=== PATIENT | male | born 1940 | race African-American/Black ===

== ENCOUNTER 2018-11-15 12:11 | Inpatient (IN) | payer MEDICARE, OTHER ==
--- NOTE | 2018-11-15 12:43 | RAD ---
Exam: Chest one view HISTORY:Fever Comparison: 02/04/2009 FINDINGS: Cardiac silhouette: Normal Aorta: Atherosclerosis and elongation Pulmonary vessels: Normal Costophrenic angles: Right costophrenic angle is clear. Minimal blunting of the left costophrenic ang le. LUNGS: Focal infiltrate in the left upper lobe. Pneumothorax: None Osseous abnormalities: None IMPRESSION: 1. Minimal blunting of the left costophrenic angle likely due to small effusion. 2. Left upper lobe infiltrate. Continued surveillance is recommended.
[2018-11-15 12:48] LABS: Mean Corpuscular HGB CONC 32.7 g/dL (32.0-36.0); Mean Corpuscular Hemoglobin 36.1 pg (27.0-31.0); Mean Platelet Volume 7.8 fL (7.4-10.4); Platelet Count 169 thou/uL (130-400); RBC Distribution Width 13.5 % (11.5-14.5); Red Blood Cell (RBC) Count 3.04 mill/uL (4.70-6.10); White Blood Cell (WBC) Count 13.7 thou/uL (4.8-10.8)
[2018-11-15 13:04] LABS: Band 15 % (5-11); Lymphocytes 1 % (21-51); MDiff Complete? YES; Macrocytosis SLIGHT = 6-15 cells (100X) (0-5/hpf); Monocytes 7 % (0-10); Neutrophil 77 % (42-75); Platelet Morphology Comment Appears Adequate; Polychromasia SLIGHT = 2-3 cells (100X) (0-2/hpf)
[2018-11-15 13:14] LABS: ALT (SGPT) 8 U/L (8-55); AST (SGOT) 12 U/L (5-34); Albumin 3.6 g/dL (3.4-4.8); Alkaline Phosphatase 59 U/L (40-150); Anion Gap 12 mmol/L (10-20); BUN (Urea Nitrogen) 15 mg/dL (8.4-25.7); Bilirubin, Total 0.9 mg/dL (0.2-1.2); CK (CPK) 25 U/L (30-200); Calc. Creatinine Clearance 0 mL/min (70-130); Calcium 8.6 mg/dL (7.8-10.44); Carbon Dioxide 24 mmol/L (23-31); Chloride 101 mmol/L (98-107); Estimated GFR-MDRD 69; Globulin 1.7 g/dL (2.4-3.5); Glucose 113 mg/dL (83-110); Lipase Less than 4 U/L (8-78); Potassium 4.5 mmol/L (3.5-5.1); Protein, Total 5.3 g/dL (5.8-8.1); Sodium 132 mmol/L (136-145)
[2018-11-15] MEDS ORDERED: cefTRIAXone\\ROCEPHIN 1 GM VIAL ONE (13:30)
--- NOTE | 2018-11-15 14:53 | HP ---
PRIMARY CARE PHYSICIAN: Dr. Esa Corado. REASON FOR ADMISSION: Sepsis, encephalopathy, and pneumonia. HISTORY OF PRESENT ILLNESS: This is a 78-year-old male, who has multiple medical problems including hypertension, dyslipidemia, smoking, gout, who presented to emergency room with a complaint of altered mental status. The patient's family member reports that about one and half week ago, he was admitted at [facility] for colon infection. At that time, the patient's family member was told that he did not have any pneumonia. He stayed in the hospital for about 1 week. He was given different antibiotic therapy, and by the time of discharge, he was pretty much up to his baseline. He was at home for about 1-1/2 weeks, and for last couple of days, the patient's family member noticed that he is again declining, and he was having lethargy and generalized weakness. He was also having diarrhea for 1 or 2 days. He does not have any hematochezia or blood in stool. He did not have any vomiting or abdominal pain, but he was having cough, but family member reports that he always coughed because of smoking-related issue. He has continued to smoke about half pack per day. He denies any recent travel or sick exposure. He does not have any flu-like illness. Today morning, the patient family member noticed that he was not acting as he supposed to act normally. He was more lethargic, more somnolent, and that is why family member concerned about and decided to bring to the hospital. In the emergency room, today his routine blood test showed leukocytosis with bandemia, and he had a chest x-ray, which showed left upper lobe infiltration. The patient has received Rocephin and Levaquin in the emergency room. The patient had also received IV fluid. He was febrile in the emergency room and he was relatively hypotensive, but his blood pressure has improved. Family member, the patient's ex- as well as the patient's son, and the patient expressed their wish to continue as a DNR status while in hospital. At this point, the patient's condition has been improved in the emergency room and we are admitting this patient for further evaluation and treatment. REVIEW OF SYSTEMS: CONSTITUTIONAL: Negative for weight loss or gain, ability to conduct usual activities. SKIN: Negative for rash, itching. EYES: Negative for double vision, pain. ENT/MOUTH: Negative for nose bleeding, neck stiffness, pain, tenderness. CARDIOVASCULAR: Negative for palpitations, dyspnea on exertion, orthopnea. RESPIRATORY: Negative for shortness of breath, wheezing, cough, hemoptysis, fever or night sweats. GASTROINTESTINAL: Negative for poor appetite, abdominal pain, heartburn, nausea , vomiting, constipation, or diarrhea. GENITOURINARY: Negative for urgency, frequency, dysuria, nocturia. MUSCULOSKELETAL: Negative for pain, swelling. NEUROLOGIC/PSYCHIATRIC: Negative for anxiety, depression. ALLERGY/IMMUNOLOGIC: Negative for skin rash, bleeding tendency. Please see my HPI for pertinent positives and negatives. All other review of systems reviewed and negative except as mentioned in HPI. Above-mentioned review of systems is also not reliable because the patient is lethargic and somnolent. PAST MEDICAL HISTORY: Peripheral vascular disease, sciatica, hypertension, dyslipidemia, chronic pain disorder, chronic constipation, and macrocytic anemia. PAST SURGICAL HISTORY: Left inguinal hernia repair, rib removal, left hand surgery, and Dupuytren contracture repair. PAST PSYCHIATRIC HISTORY: Reviewed and negative. SOCIAL HISTORY: The patient has history of alcohol use in the past, but currently he does not have any alcohol abuse. He dips tobacco as well as smokes about half pack per day. He is retired, lives at home with family. FAMILY HISTORY: No strong family history of CAD, CVA or cancer. ALLERGIES: AUGMENTIN CAUSES DIARRHEA. CURRENT HOME MEDICATION: 1. Chlorthalidone 25 mg half tablet daily. 2. Lipitor 20 mg p.o. at bedtime. 3. Aspirin 81 mg daily. 4. Losartan 50 mg daily. 5. Etodolac 500 mg daily. 6. Gabapentin 600 mg three times daily. 7. Colchicine 0.6 mg twice daily. 8. Folic acid 1 mg daily. 9. MS Contin 30 mg three times daily. EMERGENCY ROOM COURSE: The patient has received IV fluid 2 L, Rocephin 1 g, and Levaquin 750 mg. PHYSICAL EXAMINATION: VITAL SIGNS: Currently, blood pressure 104/59, pulse 74, respiratory rate 18, temperature 99.8, saturation 98% on room air, and weight 67 kg. GENERAL: The patient is currently somnolent, lethargic, arousable, follows simple commands. HEENT: Head; normocephalic and atraumatic. Eyes; pupils round and reactive to light, extraocular muscle intact. ENT; oropharynx within normal limits, moist mucous membranes, no oral lesion, no pharyngeal erythema, no exudate. NECK: Supple. No JVD. No thyromegaly. No carotid bruit. No jugular venous distention. LUNGS: Left-sided upper lobe rales heard. No wheeze. No rhonchi. No accessory muscles of respiration in use. CARDIAC: S1 and S2 regular. Slight tachycardia. No murmur. No gallop. No rub. ABDOMEN: Soft. Bowel sounds present. Nontender. Nondistended. No organomegaly. No mass. No suprapubic tenderness. BACK: Unremarkable. No CVA tenderness. EXTREMITIES: Upper extremities; passive movement of all joints are normal. Lower extremities; bilateral lower extremity edema noted, good distal pulsation. SKIN: No skin rash. HEMATOLOGICAL: No lymphadenopathy. NEUROLOGIC: Nonfocal examination. SIGNIFICANT LABORATORY DATA: WBC 13.7, hemoglobin 11.0, MCV 101, platelet 169 with bandemia. BMP; sodium 132, potassium 4.5, chloride 101, carbon dioxide 24, BUN 15, creatinine 1.24, glucose 113, and calcium 8.6. Lactic acid 1.8. LFT; AST 12, ALT 8, alkaline phosphatase 59, and albumin 3.6. CK 25. Troponin I is less than 0.010. BNP 188.7. Albumin 3.6. Lipase less than 4. Chest x-ray based on my review, left upper lobe infiltration. EKG showing normal sinus rhythm without any acute ischemic changes. ASSESSMENT/PLAN: 1. Severe sepsis. The patient has sepsis criteria with fever, tachycardia, leukocytosis with bandemia. Source of infection is likely pneumonia. We will exclude C diff colitis. Blood culture and urine culture obtained. The patient also has associated encephalopathy, which is likely from sepsis. 2. Left upper lobe pneumonia, likely healthcare-associated. The patient had recent hospitalization one and half week ago at [facility]. Currently has severe sepsis. We will give him Rocephin, Levaquin, pharmacy-adjusted vancomycin, Florastor 250 mg p.o. daily, DuoNeb therapy on p.r.n. basis, Mucinex 600 mg twice daily. We will give him gentle IV fluid at 70 mL/h. 3. Macrocytic anemia. We will continue with folic acid and vitamin B12 therapy while in hospital. 4. Hypotension. We will hold on antihypertensive medication today. Once blood pressure improves, then we will resume blood pressure medication. 5. Dyslipidemia. We will continue Lipitor 20 mg p.o. at bedtime. 6. Chronic pain disorder. We will use morphine 2 mg q.2 hours hourly p.r.n. basis for pain control. We will hold on the long-acting medication because of encephalopathy. 7. Chronic low back pain. We will continue with gabapentin 600 mg three times daily. We will hold gabapentin if the patient's mental status is still lethargic and somnolent. 8. Hyponatremia, likely related with volume depletion and chlorthalidone use. 9. Deep venous thrombosis prophylaxis, Lovenox 40 mg subcu daily. Gastrointestinal prophylaxis, Pepcid 20 mg p.o. b.i.d. 10. Code status, the patient is DNR. This was confirmed with the patient's son and the patient's ex- and with the patient. 11. Elevated BNP. This patient has bilateral lower extremity edema. We will obtain echocardiography to assess EF and other structural abnormality. DISPOSITION PLAN: The patient will need PT, OT, and possible placement to senior living home versus rehab based on clinical course. Plan of care discussed with the patient and family member. We will also check urinalysis and send urine culture. Job ID: [id number] [facility]
[2018-11-15] MEDS ORDERED: Ondansetron PF 4 MG/2 ML Vial IVP PRN (15:33)
[2018-11-15] MEDS ORDERED: Ondansetron ODT 4 MG TAB SL PRN (15:33)
[2018-11-15] MEDS ORDERED: Zolpidem Tartrate 5 MG TAB PO PRN (15:39)
[2018-11-15] MEDS ORDERED: Bisacodyl 10 MG SUPP PR PRN (15:39)
[2018-11-15] MEDS ORDERED: cefTRIAXone\\ROCEPHIN 1 GM in Sodium Chloride 0.9% 100 ML IVPB SCH (16:00)
[2018-11-15] MEDS: Acetaminophen 325 MG TAB PO PRN ×2 (16:09→19:41)
[2018-11-15] MEDS: Sodium Chloride 0.9% 1,000 ML IV SCH ×3 (16:09→23:10)
[2018-11-15] MEDS: Gabapentin 300 MG CAP PO SCH ×2 (16:09→21:46)
[2018-11-15 16:21] VITALS: BMI 19.6
[2018-11-15] MEDS ORDERED: Vancomycin HCl 1.5 GM in Sodium Chloride 0.9% 250 ML 300 ML IVPB SCH (17:00)
[2018-11-15 20:09] LABS: Bilirubin Moderate (Negative); Blood, Urine Negative (Negative); Clarity CLEAR (Clear); Glucose, Urine (Dipstick) Negative (Negative); Leukocyte Negative (Negative); Nitrite Negative (Negative); Protein, Urine (Dipstick) Negative (Neg-Trace); Specific Gravity, Urine 1.011 (1.002-1.036); Urobilinogen 0.2 mg/dL (0.2-1.0); pH, Urine 5.5 (5.0-9.0)
[2018-11-15 20:12] LABS: Bacteria/HPF None Seen HPF (None Seen); Hyaline Casts/LPF 0-3 HYALINE CAST LPF (0-3 Hyaline); RBC/HPF 0-3 HPF (0-3); Squamous Epithelial None Seen HPF (0-3); WBC/HPF 0-3 HPF (0-3)
[2018-11-15] MEDS ORDERED: Ibuprofen 100 MG/5 ML UDCUP PO PRN (20:45)
[2018-11-15] MEDS ORDERED: Senokot S 8.6-50 MG TAB PO PRN (21:00)
[2018-11-15] MEDS: HYDROcodone/Acetaminophen 5/325 mg Tablet PO PRN (21:43)
[2018-11-15] MEDS: Famotidine 20 MG TAB PO SCH (21:43)
[2018-11-15] MEDS: Atorvastatin Calcium 20 MG TAB PO SCH (21:43)
[2018-11-15] MEDS: guaiFENesin ER 600 MG TAB PO SCH (21:43)
[2018-11-16] MEDS ORDERED: Ibuprofen 200 MG TAB PO PRN (00:30)
[2018-11-16 03:59] LABS: #Basophils 0.1 thou/uL (0.0-0.2); #Eosinphils 0.1 thou/uL (0.0-0.7); #Lymphocytes 0.3 thou/uL (1.20-3.40); #Monocytes 0.5 thou/uL (0.11-0.59); #Neutrophils 6.5 thou/uL (1.40-6.50); %Basophils 0.7 % (0.0-1.0); %Lymphocytes 4.2 % (21.0-51.0); %Neutrophils 87.1 % (42.0-75.0); Hemoglobin 10.4 g/dL (14.0-18.0); Mean Corpuscular HGB CONC 34.6 g/dL (32.0-36.0); Mean Corpuscular Hemoglobin 37.6 pg (27.0-31.0); Platelet Count 132 thou/uL (130-400); RBC Distribution Width 13.3 % (11.5-14.5); Red Blood Cell (RBC) Count 2.77 mill/uL (4.70-6.10); White Blood Cell (WBC) Count 7.5 thou/uL (4.8-10.8)
[2018-11-16 04:13] LABS: Anion Gap 11 mmol/L (10-20); BUN (Urea Nitrogen) 16 mg/dL (8.4-25.7); Calc. Creatinine Clearance 48 mL/min (70-130); Carbon Dioxide 20 mmol/L (23-31); Chloride 107 mmol/L (98-107); Estimated GFR-MDRD 72; Glucose 93 mg/dL (83-110); Potassium 3.3 mmol/L (3.5-5.1); Sodium 135 mmol/L (136-145)
[2018-11-16] MEDS: Acetaminophen 325 MG TAB PO PRN ×2 (05:10→21:15)
[2018-11-16] MEDS: Sodium Chloride 0.9% 1,000 ML IV SCH ×3 (05:17→21:11)
[2018-11-16] MEDS: Folic Acid 1 MG TAB PO SCH (08:48)
[2018-11-16] MEDS: Gabapentin 300 MG CAP PO SCH ×3 (08:48→21:15)
[2018-11-16] MEDS: guaiFENesin ER 600 MG TAB PO SCH ×2 (08:48→21:15)
[2018-11-16] MEDS: Multivitamin W/ Minerals 1 TAB PO SCH (08:48)
[2018-11-16] MEDS: Famotidine 20 MG TAB PO SCH ×2 (08:48→21:15)
[2018-11-16] MEDS: Saccharomyces boulardii 250 MG CAP PO SCH (08:48)
[2018-11-16] MEDS: Aspirin Chewable 81 MG TAB PO SCH (08:48)
[2018-11-16] MEDS: Enoxaparin Sodium 40 MG/0.4 ML SYRINGE SC SCH (08:52)
[2018-11-16] MEDS: Cyanocobalamin (Vitamin B-12) 1,000 MCG TAB PO SCH (08:52)
[2018-11-16] MEDS: metroNIDAZOLE 500 MG in Premix Bag 1 BAG IVPB SCH ×2 (10:19→17:50)
[2018-11-16] MEDS ORDERED: cefTRIAXone\\ROCEPHIN 1 GM in Sodium Chloride 0.9% 100 ML IVPB SCH (14:00)
--- NOTE | 2018-11-16 14:26 | PDOC.PN ---
- Subjective Encounter Start Date: 11/16/18 Encounter Start Time: 14:24 Patient seen and examined, no new issues. All questions answered. - Objective Vital Signs & Weight: Vital Signs (12 hours) Temp Pulse Resp BP BP Pulse Ox 11/16/18 08:00 98.8 F 75 18 122/50 L 93 L 11/16/18 07:10 99.5 F 11/16/18 04:57 102.0 F H 100 18 116/70 95 Weight Weight 145 lb I&O: 11/15/18 11/16/18 11/17/18 06:59 06:59 06:59 Intake Total 1290 Balance 1290 Result Diagrams: 11/16/18 03:52 11/16/18 03:52 Phys Exam - Physical Examination Constitutional: NAD HEENT: PERRLA, moist MMs Neck: no nodes, no JVD Respiratory: no wheezing, no rales, no rhonchi Cardiovascular: RRR, no significant murmur, no rub Gastrointestinal: soft, non-tender, no distention Musculoskeletal: pulses present, edema present (trace) Dx/Plan (1) Sepsis Code(s): A41.9 - SEPSIS, UNSPECIFIED ORGANISM Status: Acute (2) Anemia Code(s): D64.9 - ANEMIA, UNSPECIFIED Status: Acute (3) C. difficile colitis Status: Acute - Plan * patient is AAO x 3 and is not sure he wants to be a DNR, advised to discuss with his son and family before deciding, will revisit code status in AM * DC rocephin + vanc for now, patient is C-diff positive, will cont with levaquin, add flagyl * labs in AM * likely will need IV abx for a couple more days * no other changes for now * case and plan d/w patient and family at length, they understood and agreed with this plan.
[2018-11-16] MEDS ORDERED: Vancomycin HCl 1 GM in Premix Bag 1 BAG IVPB SCH (17:00)
[2018-11-16] MEDS: Atorvastatin Calcium 20 MG TAB PO SCH (21:15)
[2018-11-17] MEDS: metroNIDAZOLE 500 MG in Premix Bag 1 BAG IVPB SCH ×3 (02:30→19:17)
[2018-11-17] MEDS: Acetaminophen 325 MG TAB PO PRN (05:09)
[2018-11-17] MEDS: HYDROcodone/Acetaminophen 5/325 mg Tablet PO PRN ×4 (06:12→19:18)
[2018-11-17] MEDS: Sodium Chloride 0.9% 1,000 ML IV SCH ×2 (06:29→21:15)
[2018-11-17 07:46] LABS: #Lymphocytes 0.6 thou/uL (1.20-3.40); #Monocytes 0.6 thou/uL (0.11-0.59); #Neutrophils 9.2 thou/uL (1.40-6.50); %Eosinophils 0.1 % (0.0-10.0); %Lymphocytes 6.1 % (21.0-51.0); %Monocytes 6.1 % (0.0-10.0); %Neutrophils 87.7 % (42.0-75.0); Hemoglobin 9.7 g/dL (14.0-18.0); Mean Corpuscular HGB CONC 34.5 g/dL (32.0-36.0); Mean Corpuscular Hemoglobin 37.3 pg (27.0-31.0); Mean Platelet Volume 8.5 fL (7.4-10.4); Platelet Count 130 thou/uL (130-400); RBC Distribution Width 13.2 % (11.5-14.5); Red Blood Cell (RBC) Count 2.59 mill/uL (4.70-6.10); White Blood Cell (WBC) Count 10.5 thou/uL (4.8-10.8)
[2018-11-17 08:27] LABS: Anion Gap 12 mmol/L (10-20); BUN (Urea Nitrogen) 16 mg/dL (8.4-25.7); Calc. Creatinine Clearance 56 mL/min (70-130); Calcium 8.1 mg/dL (7.8-10.44); Carbon Dioxide 20 mmol/L (23-31); Chloride 108 mmol/L (98-107); Estimated GFR-MDRD 85; Glucose 87 mg/dL (83-110); Potassium 3.2 mmol/L (3.5-5.1); Sodium 137 mmol/L (136-145)
[2018-11-17] MEDS: Saccharomyces boulardii 250 MG CAP PO SCH (09:26)
[2018-11-17] MEDS: Multivitamin W/ Minerals 1 TAB PO SCH (09:26)
[2018-11-17] MEDS: Gabapentin 300 MG CAP PO SCH ×4 (09:26→20:39)
[2018-11-17] MEDS: Cyanocobalamin (Vitamin B-12) 1,000 MCG TAB PO SCH (09:26)
[2018-11-17] MEDS: Aspirin Chewable 81 MG TAB PO SCH (09:26)
[2018-11-17] MEDS: Folic Acid 1 MG TAB PO SCH (09:26)
[2018-11-17] MEDS: Famotidine 20 MG TAB PO SCH ×2 (09:26→20:39)
[2018-11-17] MEDS: guaiFENesin ER 600 MG TAB PO SCH ×2 (09:27→20:39)
[2018-11-17] MEDS: Enoxaparin Sodium 40 MG/0.4 ML SYRINGE SC SCH (09:27)
[2018-11-17] MEDS ORDERED: Potassium Chloride 20 MEQ TAB PO SCH (10:00)
--- NOTE | 2018-11-17 13:34 | PDOC.PN ---
- Subjective Encounter Start Date: 11/17/18 Encounter Start Time: 13:32 Patient seen and examined, no new issues or complaints. States he feels better. - Objective Vital Signs & Weight: Vital Signs (12 hours) Temp Pulse Resp BP BP Pulse Ox 11/17/18 08:00 98.9 F 65 18 123/53 L 94 L 11/17/18 04:00 99.2 F 66 18 137/69 95 Weight Weight 145 lb I&O: 11/16/18 11/17/18 11/18/18 06:59 06:59 06:59 Intake Total 3875 Balance 3875 Result Diagrams: 11/17/18 07:15 11/17/18 07:15 Phys Exam - Physical Examination Constitutional: NAD HEENT: PERRLA, moist MMs, sclera anicteric Neck: no nodes, no JVD, supple Respiratory: no wheezing, no rales, no rhonchi Cardiovascular: RRR, no significant murmur, no rub Gastrointestinal: soft, non-tender, no distention, positive bowel sounds Dx/Plan (1) Sepsis Code(s): A41.9 - SEPSIS, UNSPECIFIED ORGANISM Status: Acute (2) Anemia Code(s): D64.9 - ANEMIA, UNSPECIFIED Status: Acute (3) C. difficile colitis Status: Acute - Plan * still having diarrhea, stool not well formed * cont IVFs * able to tolerate liquids today, slowly advance diet * cont flagyl/levaquin * no changes in plan of care * case and plan d/w patient and son at length, they understood and agreed with this plan.
[2018-11-17] MEDS: Atorvastatin Calcium 20 MG TAB PO SCH (20:39)
[2018-11-17] MEDS: Ondansetron ODT 4 MG TAB PO PRN (21:14)
[2018-11-18] MEDS: HYDROcodone/Acetaminophen 5/325 mg Tablet PO PRN ×5 (00:35→23:46)
[2018-11-18] MEDS: Calcium Carbonate 500 MG ChewTAB PO PRN ×2 (00:36→22:49)
[2018-11-18] MEDS: metroNIDAZOLE 500 MG in Premix Bag 1 BAG IVPB SCH ×3 (01:40→19:18)
[2018-11-18] MEDS: Ondansetron ODT 4 MG TAB PO PRN ×2 (05:48→20:10)
[2018-11-18] MEDS: Multivitamin W/ Minerals 1 TAB PO SCH (08:47)
[2018-11-18] MEDS: Gabapentin 300 MG CAP PO SCH ×2 (08:47→20:17)
[2018-11-18] MEDS: Saccharomyces boulardii 250 MG CAP PO SCH (08:47)
[2018-11-18] MEDS: Folic Acid 1 MG TAB PO SCH (08:47)
[2018-11-18] MEDS: Cyanocobalamin (Vitamin B-12) 1,000 MCG TAB PO SCH (08:47)
[2018-11-18] MEDS: Aspirin Chewable 81 MG TAB PO SCH (08:47)
[2018-11-18] MEDS: guaiFENesin ER 600 MG TAB PO SCH ×2 (08:47→20:16)
[2018-11-18] MEDS: Famotidine 20 MG TAB PO SCH ×2 (08:47→20:16)
[2018-11-18] MEDS: Enoxaparin Sodium 40 MG/0.4 ML SYRINGE SC SCH (08:48)
[2018-11-18] MEDS: Ondansetron PF 4 MG/2 ML Vial IVP PRN ×2 (09:40→15:21)
--- NOTE | 2018-11-18 10:12 | PDOC.PN ---
- Subjective Encounter Start Date: 11/18/18 Encounter Start Time: 12:20 Subjective: Patient with decreased diarrhea today, more formed. No cough. No SOB. - Objective MAR Reviewed: Yes Vital Signs & Weight: Vital Signs (12 hours) Temp Pulse Resp BP BP Pulse Ox 11/18/18 07:46 98.5 F 69 16 143/75 H 95 11/18/18 04:00 98.7 F 67 18 156/62 H 97 11/18/18 00:00 97.9 F 68 18 149/78 H 95 Weight Weight 145 lb I&O: 11/17/18 11/18/18 11/19/18 06:59 06:59 06:59 Intake Total 3875 Balance 3875 Result Diagrams: 11/17/18 07:15 11/17/18 07:15 Phys Exam - Physical Examination Constitutional: NAD HEENT: moist MMs Respiratory: no wheezing, no rales, no rhonchi, clear to auscultation bilateral Cardiovascular: RRR, no significant murmur Gastrointestinal: soft, non-tender, positive bowel sounds Neurological: non-focal Psychiatric: normal affect, A&O x 3 Dx/Plan (1) Pneumonia Code(s): J18.9 - PNEUMONIA, UNSPECIFIED ORGANISM Status: Acute Qualifiers: Laterality: left Lung location: upper lobe of lung Comment: on Levaquin (2) Sepsis Code(s): A41.9 - SEPSIS, UNSPECIFIED ORGANISM Status: Acute Comment: leukocytosis and relative hypotension resolved, on Levaquin, Metronidazole since 11/16/18, oral Vanc. since 11/18/18 (3) C. difficile colitis Status: Acute Comment: oral vanc (4) Chronic pain disorder Code(s): G89.4 - CHRONIC PAIN SYNDROME Status: Chronic Comment: resume home Morphine (5) HTN (hypertension) Code(s): I10 - ESSENTIAL (PRIMARY) HYPERTENSION Status: Chronic (6) PVD (peripheral vascular disease) Code(s): I73.9 - PERIPHERAL VASCULAR DISEASE, UNSPECIFIED Status: Chronic (7) Hyperlipidemia Code(s): E78.5 - HYPERLIPIDEMIA, UNSPECIFIED Status: Chronic - Plan cont current plan of care, continue antibiotics, PT/OT, DVT proph w/lovenox, DVT proph w/SCDs * . - Discharge Day Encounter end time: 12:30
[2018-11-18] MEDS: Vancomycin HCl 25 MG/ML Oral PO SCH ×3 (13:45→23:45)
[2018-11-18] MEDS: Sodium Chloride 0.9% 1,000 ML IV SCH (13:56)
[2018-11-18] MEDS ORDERED: Morphine ER 30 MG TAB PO SCH ×2 (14:00→15:00)
[2018-11-18] MEDS ORDERED: Gabapentin 300 MG CAP PO SCH ×2 (14:00→15:00)
[2018-11-18] MEDS ORDERED: GABAPENTIN 600 MG PO SCH (15:00)
[2018-11-18] MEDS: Colchicine 0.6 MG TAB PO SCH (20:16)
[2018-11-18] MEDS: Atorvastatin Calcium 20 MG TAB PO SCH (20:17)
[2018-11-18] MEDS: Morphine ER 30 MG TAB PO SCH (20:18)
[2018-11-18] MEDS ORDERED: Non-Formulary Item 1 EACH (Losartan Potassium [Cozaar] 50 MG) PO SCH (21:00)
[2018-11-18] MEDS ORDERED: ECONAZOLE NITRATE TOP SCH (21:00)
[2018-11-18] MEDS ORDERED: Losartan 25 MG TAB PO SCH (21:00)
[2018-11-18] MEDS ORDERED: ECONAZOLE NITRATE 1% TOP SCH (21:00)
[2018-11-18] MEDS ORDERED: [UNRECOGNIZED DRUG - OTHER] TOP SCH (21:00)
[2018-11-18] MEDS ORDERED: HYDROCORTISONE TOP SCH (21:00)
[2018-11-18] MEDS ORDERED: PRAMOXINE TOP SCH (21:00)
[2018-11-18] MEDS: Hydrocortisone 2.5%/Pramoxine 1% CRM 30 GM TUBE TOP SCH (21:47)
[2018-11-19] MEDS: metroNIDAZOLE 500 MG in Premix Bag 1 BAG IVPB SCH (01:12)
[2018-11-19] MEDS: Sodium Chloride 0.9% 1,000 ML IV SCH (01:13)
[2018-11-19] MEDS: HYDROcodone/Acetaminophen 5/325 mg Tablet PO PRN (05:02)
[2018-11-19] MEDS: Vancomycin HCl 25 MG/ML Oral PO SCH ×2 (05:02→11:55)
[2018-11-19] MEDS: Ondansetron ODT 4 MG TAB PO PRN (05:02)
[2018-11-19 07:04] LABS: #Eosinphils 0.1 thou/uL (0.0-0.7); #Lymphocytes 1.2 thou/uL (1.20-3.40); #Monocytes 0.6 thou/uL (0.11-0.59); #Neutrophils 2.7 thou/uL (1.40-6.50); %Basophils 0.2 % (0.0-1.0); %Eosinophils 1.8 % (0.0-10.0); %Lymphocytes 27.2 % (21.0-51.0); %Monocytes 12.1 % (0.0-10.0); %Neutrophils 58.7 % (42.0-75.0); Hemoglobin 9.2 g/dL (14.0-18.0); Mean Corpuscular HGB CONC 32.2 g/dL (32.0-36.0); Mean Corpuscular Hemoglobin 35.3 pg (27.0-31.0); Mean Platelet Volume 8.2 fL (7.4-10.4); Platelet Count 140 thou/uL (130-400); RBC Distribution Width 13.5 % (11.5-14.5); Red Blood Cell (RBC) Count 2.59 mill/uL (4.70-6.10); White Blood Cell (WBC) Count 4.6 thou/uL (4.8-10.8)
[2018-11-19 07:22] LABS: Anion Gap 9 mmol/L (10-20); BUN (Urea Nitrogen) 12 mg/dL (8.4-25.7); Calc. Creatinine Clearance 64 mL/min (70-130); Calcium 8.2 mg/dL (7.8-10.44); Carbon Dioxide 21 mmol/L (23-31); Chloride 111 mmol/L (98-107); Estimated GFR-MDRD Greater than 90; Glucose 89 mg/dL (83-110); Potassium 3.2 mmol/L (3.5-5.1); Sodium 138 mmol/L (136-145)
[2018-11-19] MEDS: Multivitamin W/ Minerals 1 TAB PO SCH (08:16)
[2018-11-19] MEDS: Saccharomyces boulardii 250 MG CAP PO SCH (08:16)
[2018-11-19] MEDS: Famotidine 20 MG TAB PO SCH (08:16)
[2018-11-19] MEDS: Cyanocobalamin (Vitamin B-12) 1,000 MCG TAB PO SCH (08:16)
[2018-11-19] MEDS: Folic Acid 1 MG TAB PO SCH (08:16)
[2018-11-19] MEDS: Morphine ER 30 MG TAB PO SCH (08:16)
[2018-11-19] MEDS: Gabapentin 300 MG CAP PO SCH (08:17)
[2018-11-19] MEDS: guaiFENesin ER 600 MG TAB PO SCH (08:18)
[2018-11-19] MEDS: Enoxaparin Sodium 40 MG/0.4 ML SYRINGE SC SCH (08:18)
[2018-11-19] MEDS: Colchicine 0.6 MG TAB PO SCH (08:18)
[2018-11-19] MEDS: Aspirin Chewable 81 MG TAB PO SCH (08:18)
[2018-11-19] MEDS: Hydrocortisone 2.5%/Pramoxine 1% CRM 30 GM TUBE TOP SCH (08:19)
[2018-11-19] MEDS ORDERED: Ketoconazole 2% Cream 15 gm Tube TOP SCH (09:00)
--- NOTE | 2018-11-19 09:09 | PDOC.PN ---
- Subjective Encounter Start Date: 11/19/18 Encounter Start Time: 11:10 Subjective: Patient reports normal bowel movement this AM. Feeling much better. -: Ambulating ok. Ready to go home. - Objective MAR Reviewed: Yes Vital Signs & Weight: Vital Signs (12 hours) Temp Pulse Resp BP BP Pulse Ox 11/19/18 07:18 98.3 F 52 L 18 148/62 H 100 11/19/18 05:04 98.7 F 56 L 16 158/74 H 97 11/19/18 00:00 98.2 F 54 L 16 130/66 95 Weight Weight 145 lb I&O: 11/18/18 11/19/18 11/20/18 06:59 06:59 06:59 Intake Total 1440 Balance 1440 Result Diagrams: 11/19/18 06:49 11/19/18 06:49 Phys Exam - Physical Examination Constitutional: NAD HEENT: moist MMs Respiratory: no wheezing, no rales, no rhonchi, clear to auscultation bilateral Cardiovascular: RRR, no significant murmur Gastrointestinal: soft, non-tender, positive bowel sounds Neurological: non-focal Psychiatric: normal affect, A&O x 3 Dx/Plan (1) Pneumonia Code(s): J18.9 - PNEUMONIA, UNSPECIFIED ORGANISM Status: Acute Qualifiers: Laterality: left Lung location: upper lobe of lung Comment: on Levaquin, change to oral today, last day 11/21/18 (2) Sepsis Code(s): A41.9 - SEPSIS, UNSPECIFIED ORGANISM Status: Acute Comment: leukocytosis and relative hypotension resolved, on Levaquin, Metronidazole since 11/16/18, oral Vanc. since 11/18/18, will give course of Vanc until 10 days after last dose of Levaquin. (3) C. difficile colitis Status: Acute Comment: oral vanc (4) Chronic pain disorder Code(s): G89.4 - CHRONIC PAIN SYNDROME Status: Chronic Comment: resume home Morphine (5) HTN (hypertension) Code(s): I10 - ESSENTIAL (PRIMARY) HYPERTENSION Status: Chronic (6) PVD (peripheral vascular disease) Code(s): I73.9 - PERIPHERAL VASCULAR DISEASE, UNSPECIFIED Status: Chronic (7) Hyperlipidemia Code(s): E78.5 - HYPERLIPIDEMIA, UNSPECIFIED Status: Chronic - Plan cont current plan of care, continue antibiotics, PT/OT can d/c home today * . - Discharge Day Encounter end time: 11:20
[2018-11-19] MEDS ORDERED: Potassium Chloride 20 MEQ TAB PO SCH (09:15)
[2018-11-19] MEDS ORDERED: Prevnar 13-Val Conj/PF 0.5 ML SYRINGE IM ONE (09:30)
[2018-11-19 11:36] VITALS: BP 149/65; TEMP 98
--- NOTE | 2018-11-19 17:20 | DIS ---
DATE OF ADMISSION: 11/15/2018 DATE OF DISCHARGE: 11/19/2018 PRIMARY CARE PHYSICIAN: Esa Corado MD REASON FOR ADMISSION: Sepsis, encephalopathy, and pneumonia. DIAGNOSES AT DISCHARGE: 1. Acute bacterial pneumonia, left upper lobe. 2. Sepsis, resolved. 3. Clostridium difficile colitis. 4. Chronic pain disorder. 5. Hypertension. 6. Peripheral vascular disease. 7. Hyperlipidemia. 8. Diastolic dysfunction of the heart. PROCEDURES: 1. Chest x-ray showing left upper lobe infiltrate. 2. Echocardiogram showing a normal ejection fraction of 50% to 55%, with impaired relaxation compatible with diastolic dysfunction. CONSULTATIONS: None. SUMMARY OF HOSPITAL COURSE: This is a 78-year-old male with a history of a recent admission to [facility] for undetermined colon infection. He was there for about a week, was given antibiotics and was back up to his baseline at discharge. He was home for about 1-1/2 weeks and then the family noted he was starting to decline over the past couple of days, lethargy, generalized weakness, also having some diarrhea for 1 to 2 days. The patient presented to the emergency room, was noted to be in severe sepsis, was given fluids. He had a chest x-ray down with pneumonia visible. He also had diarrhea tested, it was positive for C difficile. The patient was given Rocephin, Levaquin, and vancomycin while he is in the hospital. Metronidazole was added as well. Once the C difficile came back positive, he was transitioned over to oral vancomycin. His sepsis resolved. He was feeling much better after fluid resuscitation. He was noted to have an elevated brain natriuretic peptide, so an echocardiogram was done that showed a possible diastolic dysfunction, but no systolic congestive heart failure and he was not in any clinical congestive failure at that time. The patient had resolution of his diarrhea after being on oral vancomycin for a couple of days, was feeling much better, ambulating with physical therapy and ready to go home. He was transitioned over to oral Levaquin. DISCHARGE MANAGEMENT: Discharged home. FOLLOWUP: Follow up with Dr. Corado in 2 to 3 weeks. ACTIVITY: As tolerated. DIET: Healthy heart, low-sodium diet. DISCHARGE MEDICATIONS: 1. Levaquin 750 mg daily for another 2 days. 2. Vancomycin 125 mg 4 times a day for another 12 days. 3. Continue aspirin 81 mg daily. 4. Atorvastatin 20 mg at night. 5. Chlorthalidone 12.5 mg daily. 6. Colchicine 0.6 mg twice a day. 7. Econazole nitrate 1% cream one application topically twice a day. 8. Etodolac extended release 500 mg daily. 9. Folic acid 1 mg daily. 10. Gabapentin 600 mg 3 times a day. 11. Pramosone 2.5/1% ointment applied topically twice a day. 12. Ketoconazole cream 2% applied topically daily. 13. Losartan 50 mg at night. 14. Morphine extended release. 15. MS Contin 30 mg 3 times a day. 16. Triamcinolone acetonide 0.1% ointment applied topically twice a day. Arranging the details of this discharge took 32 minutes. Job ID: [id number]
== END 2018-11-19 13:49 | disposition home or self-care (01) | DRG 871 ==
LOC: ERS 12:11 → T4-B 13:23
PROVIDERS: ADMIT Internal Medicine; ATTEND Internal Medicine
DX: A41.9 Sepsis, unspecified organism (principal); J15.9 Unspecified bacterial pneumonia; A04.72 Enterocolitis due to Clostridium difficile, not specified as recurrent; G93.40 Encephalopathy, unspecified; I10 Essential (primary) hypertension; Z66 Do not resuscitate; E78.5 Hyperlipidemia, unspecified; I73.9 Peripheral vascular disease, unspecified; R65.20 Severe sepsis without septic shock; D53.9 Nutritional anemia, unspecified; M54.5 Low back pain; G89.29 Other chronic pain; Z98.890 Other specified postprocedural states; Z88.0 Allergy status to penicillin; Z79.82 Long term (current) use of aspirin; Z79.899 Other long term (current) drug therapy
CPT/HCPCS: 36415; 71045; 80048; 80053; 81001; 82550; 83605; 83690; 83880; 84484; 85025; 87040; 87086; 87324; 87449; 87804; 90471; 90670; 93005; 93306; 96361; 96365; 96375; G0009; J0696; J1650; J1956; J2405; J3370; J7050; Q0162

== ENCOUNTER 2019-11-30 12:00 | Observation (INO) | payer MEDICARE, OTHER ==
[2019-11-30 13:03] LABS: Hemoglobin 12.9 g/dL (14.0-18.0); Mean Corpuscular HGB CONC 31.8 g/dL (32.0-36.0); Mean Corpuscular Hemoglobin 34.8 pg (27.0-31.0); Mean Platelet Volume 8.9 fL (7.4-10.4); Platelet Count 149 thou/uL (130-400); RBC Distribution Width 13.4 % (11.5-14.5); Red Blood Cell (RBC) Count 3.72 mill/uL (4.70-6.10); White Blood Cell (WBC) Count 5.3 thou/uL (4.8-10.8)
[2019-11-30 13:15] LABS: ALT (SGPT) 8 U/L (8-55); AST (SGOT) 12 U/L (5-34); Alkaline Phosphatase 93 U/L (40-110); Anion Gap 11 mmol/L (10-20); BUN (Urea Nitrogen) 12 mg/dL (8.4-25.7); Bilirubin, Total 0.8 mg/dL (0.2-1.2); Calc. Creatinine Clearance 0 mL/min (70-130); Calcium 9.1 mg/dL (7.8-10.44); Carbon Dioxide 27 mmol/L (23-31); Chloride 108 mmol/L (98-107); Estimated GFR-MDRD 81; Globulin 2.3 g/dL (2.4-3.5); Glucose 109 mg/dL (83-110); Lipase 14 U/L (8-78); Potassium 3.8 mmol/L (3.5-5.1); Protein, Total 6.3 g/dL (5.8-8.1); Sodium 142 mmol/L (136-145)
[2019-11-30 13:27] LABS: #Lymphocytes 0.7 thou/uL (1.20-3.40); #Monocytes 0.2 thou/uL (0.11-0.59); #Neutrophils 4.4 thou/uL (1.40-6.50); %Basophils 0.4 % (0.0-1.0); %Eosinophils 0.3 % (0.0-10.0); %Lymphocytes 12.7 % (21.0-51.0); %Neutrophils 82.6 % (42.0-75.0); MDiff Complete? YES; Macrocytosis SLIGHT = 6-15 cells (100X) (0-5/hpf); Platelet Morphology Comment Appears Adequate; Polychromasia SLIGHT = 2-3 cells (100X) (0-2/hpf)
[2019-11-30] MEDS ORDERED: Iopamidol-370 76% 500 ML 1 ML ONE (13:31)
--- NOTE | 2019-11-30 13:48 | CT ---
EXAM: CT ABDOMEN AND PELVIS HISTORY: Periumbilical pain. Nausea and vomiting this morning. COMPARISON: 10/29/2018 Procedure: Multiple contiguous axial images were obtained and a CT of the abdomen and pelvis with IV contrast. C oronal reformats were performed. FINDINGS: Lower Chest: within normal limits. Vessels: Atherosclerosis in a nonaneurysmal aorta. Normal luminal diameter. Heart: Normal heart size. No significant pericardial fluid Abdomen: Portal vein:Patent Gallbladder: No calcified gallstones. Normal caliber wall. Liver: Stable hypodensities in the hepatic dome. No enhancing masses. Pancreas: within normal limits. Spleen: within normal limits. Adrenals: within normal limits. Kidneys: Stable hypodensities in the right renal cortex. Bilaterally no obstructive uropathy. Peritoneum: No ascites or free air, no fluid collection. Bowel: Limited evaluation due to the lack of oral contrast administration. No evidence of bowel obstr uction. Mild mucosal thickening involving the proximal jejunal loops. Ileocecal junction is unremarkable. Normal caliber appendix. Scattered fecal material in a nondistended, nondilated colon. Scattered diverticula in the sigmoid colon. No diverticulitis. Mesentery and Retroperitoneum: No enlarged mesenteric or retroperitoneal lymph nodes. Abdominal Wall: Small umbilical hernia containing mesenteric fat. Pelvis: Reproductive Organs: Reproductive organs are unremarkable. Pelvis: No mass, lymphadenopathy, free air or free fluid. Bladder: Mucosal prominence likely due to inadequate distention. Bones: within normal limits. IMPRESSION: 1. Mild mucosal thickening involving proximal jejunal loops. Correlate for enteritis.
[2019-11-30] MEDS ORDERED: Ondansetron PF 4 MG/2 ML Vial ONE ×2 (13:58→15:02)
--- NOTE | 2019-11-30 14:53 | RAD ---
Exam: Chest one view HISTORY:Nausea vomiting diarrhea. Comparison: 11/15/2018 FINDINGS: Cardiac silhouette: Normal Aorta: Atherosclerosis Pulmonary vessels: Normal Costophrenic angles: Clear LUNGS: Chronic lung parenchymal changes. Pneumothorax: None Osseous abnormalities: None IMPRESSION: No acute cardiopulmonary process. Atherosclerosis.
[2019-11-30 15:34] LABS: Bilirubin Negative (Negative); Blood, Urine Negative (Negative); Clarity Clear (Clear); Glucose, Urine (Dipstick) Normal (Negative); Leukocyte Negative Leu/uL (Negative); Nitrite Negative (Negative); Protein, Urine (Dipstick) 30 mg/dL (Neg-Trace); Squamous Epithelial 0-3 HPF (0-3); Urobilinogen Normal mg/dL (Less than 2); WBC/HPF 0-3 HPF (0-3)
[2019-11-30 15:42] LABS: Bacteria/HPF None Seen HPF (None Seen); Sperm/HPF Rare HPF (None Seen)
[2019-11-30] MEDS ORDERED: hydrALAZINE 20 MG/ML VIAL ONE (16:08)
[2019-11-30] MEDS ORDERED: Ondansetron PF 4 MG/2 ML Vial IVP PRN (16:45)
[2019-11-30] MEDS ORDERED: Guaifenesin DM 100-10/5 ML UDCUP PO PRN (16:45)
[2019-11-30] MEDS ORDERED: Ondansetron ODT 4 MG TAB PO PRN (16:45)
[2019-11-30] MEDS ORDERED: hydrALAZINE 20 MG/ML VIAL SLOW IVP PRN (16:54)
--- NOTE | 2019-11-30 17:41 | HP ---
PCP: Esa Corado MD. CHIEF COMPLAINT: Intractable nausea, vomiting, and diarrhea. HISTORY OF PRESENT ILLNESS: The patient is a 79-year-old male with a past medical history significant for hypertension, hyperlipidemia, PVD, who presents to the ER for the above complaint. The patient reports developing nausea, vomiting, and diarrhea on Sunday. He reports that he has several stools a day. He denies any blood or mucus in the stools. He denies any fever. He denies any recent travel and he has not taken any antibiotics recently. He also reports some generalized abdominal pain, described as cramping, aching and intermittent, exacerbated and relieved by nothing. He also has some general weakness. He denies any headaches, vision changes, or focal deficits. He reports that he is able to tolerate liquids and solids intermittently. He also reports that he has not taken any of his blood pressure medicines for the last 3 days. For these reasons, he called EMS and was taken to the ER. In the ER, the patient was found to be hypertensive 202/83, with a pulse of 52. He was afebrile. Respirations were stable. EKG was sinus donny with rate of 54. CT of the abdomen showed mild mucosal thickening involving the proximal jejunal loops. Correlate for enteritis. His CMP was unremarkable and his LFTs were within normal limits. He had a white count of 5.3, lactic acid 1.7, and urine was unremarkable. He was given 1 L of normal saline, Zofran 8 mg, and hydralazine 10 mg. PAST MEDICAL HISTORY: 1. Hypertension. 2. Hyperlipidemia. 3. PVD. 4. Anemia. 5. Osteoarthritis. 6. Sciatica. SURGICAL HISTORY: 1. Hernia repair. 2. Left hand surgery. SOCIAL HISTORY: The patient lives by himself in [place] and is retired. He admits to smoking one pack per day for greater than 40 years. He denies any EtOH or illicit drug use. FAMILY HISTORY: Contributory for hypertension and cardiac disease. ALLERGIES: AMOXICILLIN AND AUGMENTIN. HOME MEDICATIONS: 1. Losartan 50 mg p.o. daily. 2. Gabapentin 600 mg p.o. t.i.d. 3. Morphine 30 mg p.o. p.r.n. pain. REVIEW OF SYSTEMS: All review of systems are negative unless otherwise noted in the HPI. PHYSICAL EXAMINATION: VITAL SIGNS: Temperature 98.9, blood pressure 202/83, heart rate 52, respirations 17, 98% on room air. CONSTITUTIONAL: The patient is hypertensive with bradycardia, normal respirations and afebrile. He is alert and oriented to person, place, and time. He is uncomfortable. He is nontoxic in appearance. HEAD: Atraumatic, normocephalic. EYES: PERRLA. Extraocular muscles intact. Sclerae nonicteric. ENT: Nares patent bilaterally. Oropharynx is clear. Uvula midline. Dry mucous membranes. Tonsils appear normal. NECK: Supple. Trachea midline. No cervical lymphadenopathy. Full range of motion. RESPIRATORY: Respirations are even and nonlabored. Diminished in the bilateral lower bases, rhonchi. No wheezes or rales. CARDIOVASCULAR: Sinus donny. S1, S2 appreciated. No murmurs, rubs, or gallops. ABDOMEN: Mild diffuse tenderness to palpation. Active bowel sounds. Nondistended and soft. No guarding. No rigidity. Negative Rodriguez sign. Negative Rovsing sign. No rebound tenderness. BACK: Full range of motion. No central spinous tenderness. No CVA tenderness. EXTREMITIES: Upper extremities: Bilateral upper extremities, full range of motion. Normal strength. Palpable radial pulses. Lower extremities: Full range of motion, normal strength, palpable pedal pulses. No swelling. No erythema. NEUROLOGIC: Patient is alert and oriented to person, place, and time. Cranial nerves 2 through 12 intact. SKIN: Warm, dry, and intact. PSYCHIATRIC: Normal affect. Alert and oriented to person, place, and time. LABORATORY DATA: EKG sinus donny at 54, no ST elevations. Initial troponin 0.013. BNP of 192.8. Chest x-ray was negative for any acute process. CT of the abdomen was positive for mild mucosal thickening involving the proximal jejunal loops. Correlate for enteritis. Lactic acid 1.7. UA was unremarkable. Sodium 142, potassium 3.8, chloride 108, CO2 of 27, BUN 12, creatinine 1.07, glucose of 109 , GFR of 81, T bilirubin 0.8, alkaline phosphatase 93, AST 12, ALT 8. WBC 5.3, hemoglobin 12.9, hematocrit 40.6, platelets were 149. IMPRESSION AND PLAN: 1. Intractable nausea and vomiting. We will admit the patient to the medical floor, observation status. Expected length of stay less than two midnights. On exam, the patient appears uncomfortable but nontoxic in appearance. CT of the abdomen showed mild mucosal thickening involving the proximal jejunal loops. Correlate for gastroenteritis. Lactic acid was 1.7. His WBCs were 5.3. The patient was given 1 L of normal saline and Zofran 8 mg in the ER with symptom improvement. His potassium was 3.8, and his LFTs were unremarkable. We will continue IV fluid resuscitation and antiemetics as needed and place the patient on a clear liquid diet. We will check stool studies, magnesium level and a TSH. We will place the patient on contact precautions until stool studies return. 2. Gastroenteritis. Again, CT of abdomen was positive for mild mucosal thickening involving the proximal jejunal loops. We will place the patient on clear liquid diet, give supportive care and advance diet as tolerated. 3. Suspected COVID. The patient denies any recent travel or known contacts with COVID. COVID test is pending. We will place on droplet precautions. 4. Hypertension. The patient has a history of hypertension and has not been able to take his oral medications for the last 3 days. He presented with a blood pressure of 202/83, currently on exam is 181/81. He denies any headaches, focal deficits. He does have some generalized weakness, most likely related to the nausea and vomiting and diarrhea. We will restart the patient's home medication of losartan 50 mg daily and we will add hydralazine p.r.n. for SBP over 180. We will continue to monitor blood pressure. 5. Tobacco abuse. The patient has extensive smoking history of one pack per day since he was a teenager. He is unwilling to quit. We will start NRT therapy, will alcohol and drug counselor on tobacco cessation. 6. Consult walking program. SCDs for deep venous thrombosis prophylaxis. Pepcid for gastrointestinal prophylaxis. The patient is a full code. 7. Discussed the case with Dr. Wasserman. Job ID: [id number] [facility]
[2019-11-30] MEDS: Famotidine/PF 20 mg/2ml Vial SLOW IVP SCH (20:13)
[2019-11-30] MEDS: Nicotine 14 MG PATCH TD SCH (20:13)
[2019-11-30] MEDS: Gabapentin 300 MG CAP PO SCH (20:13)
[2019-11-30] MEDS: Morphine ER 30 MG TAB PO SCH (20:14)
[2019-11-30] MEDS: Sodium Chloride 0.9% 1,000 ML IV SCH (20:15)
[2019-11-30] MEDS ORDERED: Losartan 25 MG TAB PO SCH (21:00)
[2019-11-30] MEDS: Acetaminophen 325 MG TAB PO PRN (21:23)
[2019-12-01] MEDS ORDERED: HYDROcodone/Acetaminophen 5/325 mg Tablet PO SCH (00:30)
[2019-12-01] MEDS ORDERED: HYDROcodone/Acetaminophen 5/325 mg Tablet ONE (00:36)
[2019-12-01] MEDS: Sodium Chloride 0.9% 1,000 ML IV SCH ×3 (01:32→11:29)
[2019-12-01] MEDS: Acetaminophen 325 MG TAB PO PRN (04:40)
[2019-12-01 05:01] LABS: #Lymphocytes 1.8 thou/uL (1.20-3.40); #Neutrophils 4.8 thou/uL (1.40-6.50); %Basophils 0.5 % (0.0-1.0); %Eosinophils 0.4 % (0.0-10.0); %Lymphocytes 23.5 % (21.0-51.0); %Monocytes 13.1 % (0.0-10.0); %Neutrophils 62.5 % (42.0-75.0); Hemoglobin 11.3 g/dL (14.0-18.0); Mean Corpuscular HGB CONC 32.2 g/dL (32.0-36.0); Mean Corpuscular Hemoglobin 35.1 pg (27.0-31.0); Mean Platelet Volume 9.1 fL (7.4-10.4); Platelet Count 132 thou/uL (130-400); RBC Distribution Width 13.4 % (11.5-14.5); Red Blood Cell (RBC) Count 3.22 mill/uL (4.70-6.10); White Blood Cell (WBC) Count 7.7 thou/uL (4.8-10.8)
[2019-12-01 05:20] LABS: Anion Gap 9 mmol/L (10-20); BUN (Urea Nitrogen) 12 mg/dL (8.4-25.7); Calc. Creatinine Clearance 65 mL/min (70-130); Calcium 8.2 mg/dL (7.8-10.44); Carbon Dioxide 23 mmol/L (23-31); Chloride 112 mmol/L (98-107); Estimated GFR-MDRD 90; Glucose 88 mg/dL (83-110); Potassium 3.2 mmol/L (3.5-5.1); Sodium 141 mmol/L (136-145)
[2019-12-01] MEDS: Gabapentin 300 MG CAP PO SCH ×2 (07:51→14:06)
[2019-12-01] MEDS: Famotidine/PF 20 mg/2ml Vial SLOW IVP SCH (07:51)
[2019-12-01] MEDS: Morphine ER 30 MG TAB PO SCH ×2 (07:52→14:06)
[2019-12-01] MEDS ORDERED: Saccharomyces boulardii 250 MG CAP PO SCH (09:00)
[2019-12-01] MEDS ORDERED: Potassium Chloride 20 MEQ TAB PO SCH (09:45)
[2019-12-01 11:52] VITALS: BMI 21.9
[2019-12-01 14:55] LABS: SARS-CoV-2 MS2 Positive; SARS-CoV-2 N Gene Negative; SARS-CoV-2 S Gene Negative; SARS-CoV-2 orf1ab Negative
[2019-12-01] MEDS: Nicotine 14 MG PATCH TD SCH (16:13)
[2019-12-01 16:14] VITALS: BP 169/79; TEMP 99.2
--- NOTE | 2019-12-02 02:50 | DIS ---
DATE OF ADMISSION: 11/30/2019 DATE OF DISCHARGE: 12/01/2019 PRIMARY CARE PROVIDER: Esa Corado MD DISCHARGE DIAGNOSES: 1. Gastroenteritis, most likely secondary to viral etiology. 2. Hypokalemia. 3. Low TSH, normal free T4. 4. COVID-19 ruled out. CONDITION OF PATIENT ON THE DAY OF DISCHARGE: Stable. I assessed Mr. Hernandez on the day of discharge. He denies any chest pain or shortness of breath. He denies any nausea, vomiting, or diarrhea. He denies any abdominal pain. Vital signs are stable. S1 and S2 are heard, regular. Lungs are clear to auscultation bilaterally. DISCHARGE MEDICATIONS: No change was made to his pre-admission home medications. POST ACUTE CARE FOLLOWUP: With primary care provider in 3 days. ACTIVITY: As tolerated. DIET: Heart healthy. HOSPITAL COURSE: Mr. Hernandez is a pleasant 79-year-old gentleman, who was admitted to [facility] for nausea, vomiting, and diarrhea, most likely secondary to viral gastroenteritis. He improved with intravenous fluids. COVID-19 was ruled out with a negative PCR test. He is being discharged home in a stable condition. Many thanks for allowing me to participate in your patient's care. Please feel free to contact me with any questions or concerns. DISCHARGE DESTINATION: Home. Job ID: [id number]
== END 2019-12-01 17:37 | disposition home or self-care (01) ==
LOC: ERS 12:00 → 2SW 16:12 → ERHOLD 16:34 → 2SW 17:46
PROVIDERS: ADMIT Internal Medicine; ATTEND Internal Medicine
DX: K52.9 Noninfective gastroenteritis and colitis, unspecified (principal); E87.6 Hypokalemia; I10 Essential (primary) hypertension; E78.5 Hyperlipidemia, unspecified; I73.9 Peripheral vascular disease, unspecified; M19.90 Unspecified osteoarthritis, unspecified site; M54.30 Sciatica, unspecified side; F17.210 Nicotine dependence, cigarettes, uncomplicated; Z20.828 Contact with and (suspected) exposure to other viral communicable diseases; Z79.82 Long term (current) use of aspirin; Z79.899 Other long term (current) drug therapy; Z88.0 Allergy status to penicillin
CPT/HCPCS: 71045; 74177; 80048; 83605; 83630; 83690; 83735; 83880; 84439; 84484; 85025; 87045; 87046; 87324; 87427 ×2; 87449 ×2; 93005; 96361; 96374; 96375 ×3; 96376 ×2; 99285; G0378 ×3; U0003; 36415; 80053; 81003; 81015; 84443; 87635; J0360; J2405; Q9967; S0028

== ENCOUNTER 2019-12-03 14:16 | Emergency (ER) | payer MEDICARE, OTHER ==
[2019-12-03 15:36] LABS: #Lymphocytes 0.8 thou/uL (1.20-3.40); #Monocytes 0.3 thou/uL (0.11-0.59); %Basophils 0.5 % (0.0-1.0); %Eosinophils 0.4 % (0.0-10.0); %Lymphocytes 13.5 % (21.0-51.0); %Monocytes 4.8 % (0.0-10.0); %Neutrophils 80.7 % (42.0-75.0); Mean Corpuscular HGB CONC 33.9 g/dL (32.0-36.0); Mean Corpuscular Hemoglobin 36.7 pg (27.0-31.0); Platelet Count 125 thou/uL (130-400); RBC Distribution Width 13.7 % (11.5-14.5); Red Blood Cell (RBC) Count 3.55 mill/uL (4.70-6.10); White Blood Cell (WBC) Count 6.2 thou/uL (4.8-10.8)
[2019-12-03 15:55] LABS: Bilirubin Negative (Negative); Blood, Urine Negative (Negative); Clarity Clear (Clear); Glucose, Urine (Dipstick) Normal (Negative); Leukocyte Negative Leu/uL (Negative); Nitrite Negative (Negative); Protein, Urine (Dipstick) 20 mg/dL (Neg-Trace)
[2019-12-03 16:20] LABS: AST (SGOT) 16 U/L (5-34); Albumin 4.2 g/dL (3.4-4.8); Anion Gap 18 mmol/L (10-20); BUN (Urea Nitrogen) 10 mg/dL (8.4-25.7); Bilirubin, Total 1.1 mg/dL (0.2-1.2); Calc. Creatinine Clearance 0 mL/min (70-130); Calcium 9.7 mg/dL (7.8-10.44); Carbon Dioxide 18 mmol/L (23-31); Chloride 111 mmol/L (98-107); Estimated GFR-MDRD 87; Globulin 2.4 g/dL (2.4-3.5); Glucose 98 mg/dL (83-110); Potassium 4.5 mmol/L (3.5-5.1); Protein, Total 6.6 g/dL (5.8-8.1); Sodium 142 mmol/L (136-145)
[2019-12-03] MEDS ORDERED: Lidocaine Viscous Sol 2% 15 ml UD Cup ONE (16:44)
[2019-12-03] MEDS ORDERED: hydrALAZINE 20 MG/ML VIAL ONE (16:44)
[2019-12-03] MEDS ORDERED: Pantoprazole 40 MG VIAL ONE (16:46)
[2019-12-03] MEDS ORDERED: Mag-Al 1200 mg/1200 mg/30 ML UDCUP ONE (16:46)
[2019-12-03] MEDS ORDERED: Sucralfate 1 GM/10 ML UDCUP ONE (16:46)
[2019-12-03] MEDS ORDERED: Ondansetron PF 4 MG/2 ML Vial ONE ×2 (16:46→16:52)
[2019-12-03 17:41] LABS: Alkaline Phosphatase 87 U/L (40-110)
[2019-12-03 17:45] LABS: ALT (SGPT) Less than 7 U/L (8-55)
== END 2019-12-03 18:20 | disposition home or self-care (01) ==
LOC: ERS 14:16
DX: R11.2 Nausea with vomiting, unspecified (principal); R10.812 Left upper quadrant abdominal tenderness; I73.9 Peripheral vascular disease, unspecified; E78.5 Hyperlipidemia, unspecified; E78.00 Pure hypercholesterolemia, unspecified; I10 Essential (primary) hypertension; M19.90 Unspecified osteoarthritis, unspecified site; D64.9 Anemia, unspecified; F17.210 Nicotine dependence, cigarettes, uncomplicated; Z79.891 Long term (current) use of opiate analgesic; Z79.899 Other long term (current) drug therapy
CPT/HCPCS: 80053; 81003; 83690; 84484; 85025; 93005; 96374; 96375; 99284; G0463; 36415; 99214; C9113; J0360; J2405

== ENCOUNTER 2021-03-03 11:55 | Emergency (ER) | payer MEDICARE, OTHER ==
[2021-03-03 12:48] LABS: #Basophils 0.1 thou/uL (0.0-0.2); #Eosinphils 0.1 thou/uL (0.0-0.7); #Lymphocytes 1.9 thou/uL (1.20-3.40); #Monocytes 0.6 thou/uL (0.11-0.59); #Neutrophils 2.9 thou/uL (1.40-6.50); %Basophils 1.1 % (0.0-1.0); %Eosinophils 2.5 % (0.0-10.0); %Lymphocytes 33.2 % (21.0-51.0); %Neutrophils 52.3 % (42.0-75.0); Hemoglobin 12.2 g/dL (14.0-18.0); Mean Corpuscular HGB CONC 34.1 g/dL (32.0-36.0); Mean Corpuscular Hemoglobin 36.9 pg (27.0-31.0); Mean Platelet Volume 8.5 fL (7.4-10.4); Platelet Count 178 thou/uL (130-400); RBC Distribution Width 13.7 % (11.5-14.5); Red Blood Cell (RBC) Count 3.31 mill/uL (4.70-6.10); White Blood Cell (WBC) Count 5.6 thou/uL (4.8-10.8)
[2021-03-03 13:04] LABS: MDiff Complete? YES; Macrocytosis SLIGHT = 6-15 cells (100X) (0-5/hpf); Platelet Morphology Comment Appears Adequate; Polychromasia SLIGHT = 2-3 cells (100X) (0-2/hpf)
[2021-03-03 13:09] LABS: ALT (SGPT) Less than 7 U/L (8-55); AST (SGOT) 11 U/L (5-34); Albumin 3.7 g/dL (3.4-4.8); Alkaline Phosphatase 94 U/L (40-110); Anion Gap 8 mmol/L (10-20); BUN (Urea Nitrogen) 16 mg/dL (8.4-25.7); Bilirubin, Total 0.4 mg/dL (0.2-1.2); Calc. Creatinine Clearance 0 mL/min (70-130); Calcium 8.8 mg/dL (7.8-10.44); Carbon Dioxide 29 mmol/L (23-31); Chloride 99 mmol/L (98-107); Globulin 2.3 g/dL (2.4-3.5); Glucose 91 mg/dL (83-110); Lipase 16 U/L (8-78); Potassium 3.3 mmol/L (3.5-5.1); Sodium 133 mmol/L (136-145)
[2021-03-03 14:16] LABS: Magnesium 1.9 mg/dL (1.6-2.6)
[2021-03-03 15:37] LABS: Bilirubin Negative (Negative); Blood, Urine Negative (Negative); Clarity Clear (Clear); Glucose, Urine (Dipstick) Normal (Negative); Ketone, Urine Negative (Negative); Leukocyte Negative Leu/uL (Negative); Nitrite Negative (Negative); Protein, Urine (Dipstick) Negative (Neg-Trace); Specific Gravity, Urine 1.006 (1.002-1.036); Urobilinogen Normal mg/dL (Less than 2)
== END 2021-03-03 15:50 | disposition home or self-care (01) ==
LOC: ERS 11:55
DX: R42 Dizziness and giddiness (principal); R29.6 Repeated falls; D53.1 Other megaloblastic anemias, not elsewhere classified; I10 Essential (primary) hypertension; E78.5 Hyperlipidemia, unspecified; M19.90 Unspecified osteoarthritis, unspecified site; E78.00 Pure hypercholesterolemia, unspecified; D64.9 Anemia, unspecified; F17.210 Nicotine dependence, cigarettes, uncomplicated; Z79.84 Long term (current) use of oral hypoglycemic drugs; Z79.899 Other long term (current) drug therapy; Z79.810 Long term (current) use of selective estrogen receptor modulators (SERMs)
CPT/HCPCS: 36415; 70450; 71045; 72128; 72170; 80053; 81003; 83690; 83735; 84484; 85025; 93005

== ENCOUNTER 2022-12-05 02:09 | Emergency (ER) | payer MEDICARE ==
[2022-12-05 02:47] LABS: #Eosinphils 0.1 thou/uL (0.0-0.7); #Monocytes 0.7 thou/uL (0.11-0.59); #Neutrophils 2.4 thou/uL (1.40-6.50); %Basophils 0.7 % (0.0-1.0); %Eosinophils 2.2 % (0.0-10.0); %Lymphocytes 43.9 % (21.0-51.0); %Monocytes 11.8 % (0.0-10.0); %Neutrophils 41.2 % (42.0-75.0); Hemoglobin 12.6 g/dL (14.0-18.0); Mean Corpuscular HGB CONC 33.8 g/dL (32.0-36.0); Mean Corpuscular Hemoglobin 37.8 pg (27.0-31.0); Mean Platelet Volume 10.3 fL (7.4-10.4); Platelet Count 167 10x3/uL (130-400); RBC Distribution Width 14.2 % (11.5-14.5); Red Blood Cell (RBC) Count 3.33 mill/uL (4.70-6.10); White Blood Cell (WBC) Count 5.8 10x3/uL (4.8-10.8)
[2022-12-05 03:08] LABS: CellaVision Operator ID lab.abc; Macrocytosis SLIGHT = 6-15 cells HPF (0-5); Platelet Adequacy Comment Platelets Normal
[2022-12-05 03:14] LABS: ALT (SGPT) 8 U/L (8-55); AST (SGOT) 13 U/L (5-34); Albumin 3.8 g/dL (3.4-4.8); Alkaline Phosphatase 78 U/L (40-110); Anion Gap 14 mmol/L (10-20); BUN (Urea Nitrogen) 23 mg/dL (8.4-25.7); Bilirubin, Total 0.7 mg/dL (0.2-1.2); Calc. Creatinine Clearance 0 mL/min (70-130); Calcium 8.5 mg/dL (7.8-10.44); Carbon Dioxide 21 mmol/L (23-31); Chloride 106 mmol/L (98-107); Estimated GFR 48; Globulin 2.4 g/dL (2.4-3.5); Glucose 87 mg/dL (83-110); Potassium 4.1 mmol/L (3.5-5.1); Protein, Total 6.2 g/dL (5.8-8.1); Sodium 137 mmol/L (136-145)
[2022-12-05] MEDS ORDERED: Metoclopramide HCl 10 MG/2 ML VIAL ONE (03:46)
[2022-12-05] MEDS ORDERED: Ketorolac Tromethamine 30 MG/ML VIAL ONE (03:46)
[2022-12-05] MEDS ORDERED: Morphine 4 MG/ML VIAL ONE (03:46)
[2022-12-05] MEDS ORDERED: diphenhydrAMINE 50 MG/ML VIAL ONE (03:46)
== END 2022-12-05 05:31 | disposition home or self-care (01) ==
LOC: ERS 02:09
DX: K08.89 Other specified disorders of teeth and supporting structures (principal); R51.9 Headache, unspecified; E78.5 Hyperlipidemia, unspecified; I10 Essential (primary) hypertension; F17.210 Nicotine dependence, cigarettes, uncomplicated; Z79.899 Other long term (current) drug therapy
CPT/HCPCS: 36415; 70450; 71045; 80053; 84484; 85025; 93005; 96365; 96375; J1200; J1885; J2270; J2765